=== PATIENT | female | born 1970 | race Caucasian/White ===

== ENCOUNTER 2016-11-16 20:21 | Emergency (ER) | payer OTHER ==
--- NOTE | 2016-11-16 22:59 | DIAGNOSTIC IMAGING REPORT ---
PROCEDURE: XR ANKLE 3 OR 4 VIEWS - RIGHT INDICATION: TRAUMA/INJURY TECHNIQUE: Four views of the right ankle. COMPARISON: None. FINDINGS: Normal mineralization. There is a partially visualized acute appearing cortical avulsion off of the dorsal and lateral aspect of the cuboid. Degenerative spurring is seen along the dorsal talonavicular articulation. Tibiotalar articulation appears intact. No joint effusion. Achilles tendon is normal. IMPRESSION: 1. Probable cuboid fracture. 2. Ankle joint is intact. 3. Findings called to the emergency room.
--- NOTE | 2016-11-16 23:00 | DIAGNOSTIC IMAGING REPORT ---
PROCEDURE: XR SHOULDER 2 OR MORE VW-RIGHT INDICATION: Pulled by dog leash 1 week ago TECHNIQUE: Three views of the right shoulder COMPARISON: None. FINDINGS: Normal mineralization. No fractures. No dislocation or separation. No suspicious soft tissue calcifications. The visible rib arcs and the underlying lung appear normal. IMPRESSION: 1. Intact right shoulder.
--- NOTE | 2016-11-17 00:19 | ED NURSING NOTES ---
Clinical Report - Nurses [facility] [address] [place] [address] 11/16/2016 20:23 Patient: FITO MATTHEWS TRIAGE Triage time 20:Nov 16 2016. Acuity: LEVEL 3. Chief Complaint: INJURY TO RIGHT ANKLE. Alert. TATA COMA SCORE: [place] Coma Scale: 15- eyes open spontaneously (4); best verbal response- oriented x 4 (5); best motor response- obeys commands (6). --20:37 Jose David Bonilla R.N. 20:28 11/16/16. BP: 147/82. HR: 112. RR: 18. O2 saturation: 99% on room air. Temp: 98.2 F. Pain level now: 810. --20:37 Jose David Bonilla R.N. Weight: 72.5 kg stated. Height/Length: 65 inches Per Patient. BMI: 26.6. --20:33 Jose David Bonilla R.N. Medications Levothyroxine Sodium Oral 125 mcg, daily. --20:35 Jose David Bonilla R.N. Medication/allergy information source: the patient. --20:37 Jose David Bonilla R.N. Allergies No Known Drug Allergy. --20:35 Jose David Bonilla R.N. History Arrived by private vehicle. Historian: patient. Accompanied by friend. Primary physician (Simón Silver [place]). ( (R) Ankle and back pain froom tripping over her dog. She also has a previous injury that she'd gotten 10 days ago when her dog on a cable got wrapped around her arm). This occurred today (about 1 1/2 hours ago). Occurred at home. Mechanism of injury: sustained a twisting injury. She has had trouble walking. Treatment CERTIFIED RESPIRATORY THERAPIST: None. PAST MEDICAL HX: Tetanus status: more than 5 years ago. Immunizations: up-to-date. Last normal menstrual period- about 6 years. SOCIAL HX: Light tobacco smoker (cigarette)- less than 1/2 a pack per day. No alcohol use or drug use. No infectious disease exposure. ABUSE ASSESSMENT: No report of abuse. FALL RISK ASSESSMENT: Fall risk assessment completed. No fall risk identified. NUTRITIONAL RISK ASSESSMENT: The nutritional risk assessment revealed no deficiencies. FUNCTIONAL ASSESSMENT: Functional assessment: no impairments noted. LEARNING NEEDS ASSESSMENT: The learning needs assessment revealed no barriers. SKIN INTEGRITY ASSESSMENT: Skin integrity risk assessment completed. No skin integrity risk identified. --20:37 Jose David Bonilla R.N. PROBLEMS: Tendonitis. Difficulty Walking. Thyroid cancer. Hypothyroidism. Immunizations. --20:36 Jose David Bonilla R.N. ADDITIONAL SURGERIES: . Foot surgery. Thyroid Surgery. --20:36 Jose David Bonilla R.N. Interventions ID band on patient. To treatment room. --20:37 Jose David Bonilla R.N. PHYSICAL ASSESSMENT Ambulatory to room. GENERAL / NEURO / PSYCH: Oriented X 4. Appears in pain. EXTREMITIES: Limited ROM present in the right ankle. Capillary refill is less than 2 seconds in the extremities. Extremity pulses are within normal limits. Pain with weight bearing. Right ankle: tenderness and swelling. SKIN: Skin intact. Skin is warm and dry. --20:38 Jose David Bonilla R.N. NURSING PROGRESS NOTES Patient gowned. Reassurance given to the patient. Patient identifiers checked. Call light placed in reach. Side rails up x 1. Bed placed in lowest position. Brakes of bed on. Patient ready for evaluation- chart flagged and ED physician notified. --20:39 Jose David Bonilla R.N. Cold pack applied to the right ankle. --20:41 Jose David Bonilla R.N. 22:21 11/16/2016 Toradol (Ketorolac Tromethamine) IM 60 mg given. Given in the left ventral gluteus. Allergies verified and confirmed 5 rights. --22:32 Jose David Bonilla R.N. 00:55. 3D boot applied to right foot by tech; distal pulses intact, sensation intact and motor function within normal limits. --01:31 Noelle Calzada 23:15 late entry -. ( sql tech in room doing procedure.). --02:08 Jose David Bonilla R.N. 22:45 11/16/16. BP: 116/82. HR: 79. RR: 16. O2 saturation: 97% on room air. Pain level now: 12/22. --02:11 Jose David Bonilla R.N. DISPOSITION / DISCHARGE 00:55 11/17/16. BP: 120/73. HR: 82. RR: 16. O2 saturation: 97% on room air. Temp: 98.2 F (oral). Pain level now: 10/22. Additional comments: R foot pain. --02:13 Jose David Bonilla R.N. Departure time: 0100. --02:13 Jose David Bonilla R.N. 01:00. Condition at departure: improved. No learning barriers present. Discharge instructions provided and reviewed with the patient. Reviewed medication(s) (prescription given to pt). Reviewed foot care instructions (wear Walker Boot as directed). Reviewed referral to family practice for followup. Patient verbalized understanding. Written instructions provided in German. The patient was discharged by the physician. She was discharged home and unaccompanied at time of discharge. She left the Emergency Department ambulatory and via private vehicle. Patient driving. --02:19 Jose David Bonilla R.N. Locked/Released at 11/17/2016 4:10 by Jose David Bonilla R.N.
--- NOTE | 2016-11-17 00:19 | ED CLINICAL REPORT ---
Clinical Report - Physicians/Mid Levels [facility] [address] [place] [address] 11/16/2016 20:23 Patient: FITO MATTHEWS Time Seen: 21:01; initial patient contact. Arrived- By private vehicle. Historian- patient. HISTORY OF PRESENT ILLNESS Chief Complaint: FALL. The injury occurred about 10 days ago. Fell while standing; tripped. Occurred at home. The patient complains of moderate pain. No blow to the head, neck pain or loss of consciousness. REVIEW OF SYSTEMS No numbness, dizziness, weakness, abdominal pain or laceration. No laceration. She has had back pain and joint pain. All systems otherwise negative, except as recorded above. PAST HISTORY Tendonitis. Difficulty Walking. Thyroid cancer. Hypothyroidism. ADDITIONAL SURGERIES: . Foot surgery. Thyroid Surgery. SOCIAL HISTORY Current every day smoker. No alcohol use or drug use. ADDITIONAL NOTES The nursing notes have been reviewed. PHYSICAL EXAM Vital Signs: 11/16/2016 20:28 BP: 147/82. HR: 112. RR: 18. O2 saturation: 99%. Temp: 98.2 F. Pain level now: 01/22. Have been reviewed. Hypertensive. Tachycardic. Respiratory rate normal. Temperature normal. Oxygen saturation normal. Appearance: Alert. Oriented X3. No acute distress. Head: Head non-tender. No swelling of head. Eyes: Pupils equal, round and reactive to light. ENT: Pharynx normal. Neck: Painless ROM. Non-tender. CVS: Pulses: right radial 2+ and left radial 2+. Respiratory: Breath sounds normal. Chest nontender. Extremities: Right arm: moderate tenderness and swelling and large ecchymosis located in the medial aspect of upper arm. Neurovascular intact distally. Right ankle: moderate tenderness and swelling. Limited ROM secondary to pain (diminished plantar flexion, dorsiflexion, inversion and eversion). Neurovascular intact distally. No erythema, ecchymosis or deformity. LABS, X-RAYS, AND EKG Rt Shoulder X-ray: No fracture. Normal alignment. No bony lesion. Soft tissues normal. Joint spaces normal. Views: AP with external rotation and AP with internal rotation. The X-rays were independently viewed by me and interpreted contemporaneously by me. Prior films were not available for comparison. Interpretation time: 00:18. Rt Ankle X-ray: No fracture. Normal alignment. No bony lesion. Soft tissues normal. Joint spaces normal. Views: 3 view ankle series. Technique: good. The X-rays were independently viewed by me and interpreted contemporaneously by me. Prior films were not available for comparison. Note - Special Studies: RUE U/S: No vascular injury. PROGRESS AND PROCEDURES Disposition: Discharged home in good and improved condition. Condition: good. CLINICAL IMPRESSION Sprain of the right ankle. Single contusion to the right shoulder. Single hematoma to the right upper arm. INSTRUCTIONS Apply ice for 20 minutes four times a day until better. Don't apply ice directly to skin. Wear boot orthosis until released. Your Current Medications: CONTINUE TAKING THE FOLLOWING MEDICATIONS: Levothyroxine Sodium Oral : 125 mcg daily. Prescription Medications: Hydrocodone/APAP 5mg / 325mg: take 1 orally every 6 hours as needed for pain. Dispense fifteen (15). No refill. Follow-up: Screening today revealed the patient's blood pressure to be in the hypertensive range. The patient should follow up with a primary care provider for blood pressure management. Follow-up with: [facility], [facility], , [facility] [address] [address] Follow up in about two days. Call for an appointment. Reason for referral: Ankle injury. Follow-up with: Mario Styles MD, General Surgeon, , [address], [place], [address] Follow up in about two days. Call for an appointment. Reason for referral: Arm Hematoma. (Electronically signed by Yehuda Bowen Dr. 11/17/2016 10:07)
--- NOTE | 2016-11-17 00:19 | ED NURSING NOTES ---
Clinical Report - Nurses [facility] [address] [place] [address] 11/16/2016 20:23 Patient: FITO MATTHEWS TRIAGE Triage time 20:Nov 16 2016. Acuity: LEVEL 3. Chief Complaint: INJURY TO RIGHT ANKLE. Alert. TATA COMA SCORE: [place] Coma Scale: 15- eyes open spontaneously (4); best verbal response- oriented x 4 (5); best motor response- obeys commands (6). --20:37 Jose David Bonilla R.N. 20:28 11/16/16. BP: 147/82. HR: 112. RR: 18. O2 saturation: 99% on room air. Temp: 98.2 F. Pain level now: 810. --20:37 Jose David Bonilla R.N. Weight: 72.5 kg stated. Height/Length: 65 inches Per Patient. BMI: 26.6. --20:33 Jose David Bonilla R.N. Medications Levothyroxine Sodium Oral 125 mcg, daily. --20:35 Jose David Bonilla R.N. Medication/allergy information source: the patient. --20:37 Jsoe David Bonilla R.N. Allergies No Known Drug Allergy. --20:35 Jose David Bonilla R.N. History Arrived by private vehicle. Historian: patient. Accompanied by friend. Primary physician (Simón Silver [place]). ( (R) Ankle and back pain froom tripping over her dog. She also has a previous injury that she'd gotten 10 days ago when her dog on a cable got wrapped around her arm). This occurred today (about 1 1/2 hours ago). Occurred at home. Mechanism of injury: sustained a twisting injury. She has had trouble walking. Treatment TACKER OFF: None. PAST MEDICAL HX: Tetanus status: more than 5 years ago. Immunizations: up-to-date. Last normal menstrual period- about 6 years. SOCIAL HX: Light tobacco smoker (cigarette)- less than 1/2 a pack per day. No alcohol use or drug use. No infectious disease exposure. ABUSE ASSESSMENT: No report of abuse. FALL RISK ASSESSMENT: Fall risk assessment completed. No fall risk identified. NUTRITIONAL RISK ASSESSMENT: The nutritional risk assessment revealed no deficiencies. FUNCTIONAL ASSESSMENT: Functional assessment: no impairments noted. LEARNING NEEDS ASSESSMENT: The learning needs assessment revealed no barriers. SKIN INTEGRITY ASSESSMENT: Skin integrity risk assessment completed. No skin integrity risk identified. --20:37 Jose David Bonilla R.N. PROBLEMS: Tendonitis. Difficulty Walking. Thyroid cancer. Hypothyroidism. Immunizations. --20:36 Jose David Bonilla R.N. ADDITIONAL SURGERIES: . Foot surgery. Thyroid Surgery. --20:36 Jose David Bonilla R.N. Interventions ID band on patient. To treatment room. --20:37 Jose David Bonilla R.N. PHYSICAL ASSESSMENT Ambulatory to room. GENERAL / NEURO / PSYCH: Oriented X 4. Appears in pain. EXTREMITIES: Limited ROM present in the right ankle. Capillary refill is less than 2 seconds in the extremities. Extremity pulses are within normal limits. Pain with weight bearing. Right ankle: tenderness and swelling. SKIN: Skin intact. Skin is warm and dry. --20:38 Jose David Bonilla R.N. NURSING PROGRESS NOTES Patient gowned. Reassurance given to the patient. Patient identifiers checked. Call light placed in reach. Side rails up x 1. Bed placed in lowest position. Brakes of bed on. Patient ready for evaluation- chart flagged and ED physician notified. --20:39 Jose David Bonilla R.N. Cold pack applied to the right ankle. --20:41 Jose David Bonilla R.N. 22:21 11/16/2016 Toradol (Ketorolac Tromethamine) IM 60 mg given. Given in the left ventral gluteus. Allergies verified and confirmed 5 rights. --22:32 Jose David Bonilla R.N. 00:55. 3D boot applied to right foot by tech; distal pulses intact, sensation intact and motor function within normal limits. --01:31 Noelle Calzada 23:15 late entry -. ( solar energy technician in room doing procedure.). --02:08 Jose David Bonilla R.N. 22:45 11/16/16. BP: 116/82. HR: 79. RR: 16. O2 saturation: 97% on room air. Pain level now: 12/22. --02:11 Jose David Bonilla R.N. DISPOSITION / DISCHARGE 00:55 11/17/16. BP: 120/73. HR: 82. RR: 16. O2 saturation: 97% on room air. Temp: 98.2 F (oral). Pain level now: 10/22. Additional comments: R foot pain. --02:13 Jose David Bonilla R.N. Departure time: 0100. --02:13 Jose David Bonilla R.N. 01:00. Condition at departure: improved. No learning barriers present. Discharge instructions provided and reviewed with the patient. Reviewed medication(s) (prescription given to pt). Reviewed foot care instructions (wear Walker Boot as directed). Reviewed referral to family practice for followup. Patient verbalized understanding. Written instructions provided in Serbian. The patient was discharged by the physician. She was discharged home and unaccompanied at time of discharge. She left the Emergency Department ambulatory and via private vehicle. Patient driving. --02:19 Jose David Bonilla R.N. Locked/Released at 11/17/2016 4:10 by Jose David Bonilla R.N.
--- NOTE | 2016-11-17 00:19 | ED CLINICAL REPORT ---
Clinical Report - Physicians/Mid Levels [facility] [address] [place] [address] 11/16/2016 20:23 Patient: FITO MATTHEWS Time Seen: 21:01; initial patient contact. Arrived- By private vehicle. Historian- patient. HISTORY OF PRESENT ILLNESS Chief Complaint: FALL. The injury occurred about 10 days ago. Fell while standing; tripped. Occurred at home. The patient complains of moderate pain. No blow to the head, neck pain or loss of consciousness. REVIEW OF SYSTEMS No numbness, dizziness, weakness, abdominal pain or laceration. No laceration. She has had back pain and joint pain. All systems otherwise negative, except as recorded above. PAST HISTORY Tendonitis. Difficulty Walking. Thyroid cancer. Hypothyroidism. ADDITIONAL SURGERIES: . Foot surgery. Thyroid Surgery. SOCIAL HISTORY Current every day smoker. No alcohol use or drug use. ADDITIONAL NOTES The nursing notes have been reviewed. PHYSICAL EXAM Vital Signs: 11/16/2016 20:28 BP: 147/82. HR: 112. RR: 18. O2 saturation: 99%. Temp: 98.2 F. Pain level now: 01/22. Have been reviewed. Hypertensive. Tachycardic. Respiratory rate normal. Temperature normal. Oxygen saturation normal. Appearance: Alert. Oriented X3. No acute distress. Head: Head non-tender. No swelling of head. Eyes: Pupils equal, round and reactive to light. ENT: Pharynx normal. Neck: Painless ROM. Non-tender. CVS: Pulses: right radial 2+ and left radial 2+. Respiratory: Breath sounds normal. Chest nontender. Extremities: Right arm: moderate tenderness and swelling and large ecchymosis located in the medial aspect of upper arm. Neurovascular intact distally. Right ankle: moderate tenderness and swelling. Limited ROM secondary to pain (diminished plantar flexion, dorsiflexion, inversion and eversion). Neurovascular intact distally. No erythema, ecchymosis or deformity. LABS, X-RAYS, AND EKG Rt Shoulder X-ray: No fracture. Normal alignment. No bony lesion. Soft tissues normal. Joint spaces normal. Views: AP with external rotation and AP with internal rotation. The X-rays were independently viewed by me and interpreted contemporaneously by me. Prior films were not available for comparison. Interpretation time: 00:18. Rt Ankle X-ray: No fracture. Normal alignment. No bony lesion. Soft tissues normal. Joint spaces normal. Views: 3 view ankle series. Technique: good. The X-rays were independently viewed by me and interpreted contemporaneously by me. Prior films were not available for comparison. Note - Special Studies: RUE U/S: No vascular injury. PROGRESS AND PROCEDURES Disposition: Discharged home in good and improved condition. Condition: good. CLINICAL IMPRESSION Sprain of the right ankle. Single contusion to the right shoulder. Single hematoma to the right upper arm. INSTRUCTIONS Apply ice for 20 minutes four times a day until better. Don't apply ice directly to skin. Wear boot orthosis until released. Your Current Medications: CONTINUE TAKING THE FOLLOWING MEDICATIONS: Levothyroxine Sodium Oral : 125 mcg daily. Prescription Medications: Hydrocodone/APAP 5mg / 325mg: take 1 orally every 6 hours as needed for pain. Dispense fifteen (15). No refill. Follow-up: Screening today revealed the patient's blood pressure to be in the hypertensive range. The patient should follow up with a primary care provider for blood pressure management. Follow-up with: [facility], [facility], , [facility] [address] [address] Follow up in about two days. Call for an appointment. Reason for referral: Ankle injury. Follow-up with: Mario Styles MD, General Surgeon, , [address], [place], [address] Follow up in about two days. Call for an appointment. Reason for referral: Arm Hematoma. (Electronically signed by Yehuda Bowen Dr. 11/17/2016 10:07)
--- NOTE | 2016-11-17 00:20 | ED ORDER SUMMARY ---
..... Patient: FITO MATTHEWS OrderSheet [facility] VisitID: [id number] [address] [place] [address] 46y, F Registration Date/Time: 11/16/2016 ORDER SHEET Weight: 72.5 kg (stated) Allergies: No Known Drug Allergy GENERAL ORDERS: Ankle 3 or 4V Right Urgent (20:39 11/16/2016 Juan R.N. verbal order read back to Ashlie Cohen) (Ack 20:42 ALawrence ER Tech1) (20:59 Roselyn) Ice (20:41 11/16/2016 Ignacioelli R.N. verbal order read back to Ashlie Cohen) (20:41 JRomanelli R.N.) Shoulder 2V or more Right Urgent (21:12 11/16/2016 Fani Cohen) (Ack 21:15 ALawrence ER Tech1) (21:27 RFay) US Art Low Ext Doppler Right Urgent (21:13 11/16/2016 Fani Cohen) (Ack 21:15 ALawrence ER Tech1) (Cancelled: Physician Order22:02 Fani Cohen) US Art Upp Ext Doppler Right Urgent (22:02 11/16/2016 Fani Cohen) (Ack 22:05 ALawrence ER Tech1) (23:35 RFay) Orthopedic Boot (00:14 11/17/2016 Fani Cohen) (0:59 omanamy R.N.) MEDICATION ORDERS: Toradol IM 60 mg (NOW) (21:12 11/16/2016 Fani Cohen) (22:32 omanamy R.N.) IV FLUIDS: ORDER SHEET NOTES: [Electronically signed by Jose David Bonilla R.N. (04:10 11/17/2016)] [Electronically signed by Yehuda Bowen Dr. (10:07 11/17/2016)] [Electronically locked/signed by Jose David Bonilla R.N. (04:10 11/17/2016)]
--- NOTE | 2016-11-17 00:20 | ED ORDER SUMMARY ---
..... Patient: FITO MATTHEWS OrderSheet [facility] VisitID: [id number] [address] [place] [address] 46y, F Registration Date/Time: 11/16/2016 ORDER SHEET Weight: 72.5 kg (stated) Allergies: No Known Drug Allergy GENERAL ORDERS: Ankle 3 or 4V Right Urgent (20:39 11/16/2016 Juan R.N. verbal order read back to Ashlie Cohen) (Ack 20:42 ALawrence ER Tech1) (20:59 Roselyn) Ice (20:41 11/16/2016 Ignacioelli R.N. verbal order read back to Ashlie Cohen) (20:41 JRomanelli R.N.) Shoulder 2V or more Right Urgent (21:12 11/16/2016 Fani Cohen) (Ack 21:15 ALawrence ER Tech1) (21:27 RFay) US Art Low Ext Doppler Right Urgent (21:13 11/16/2016 Fani Cohen) (Ack 21:15 ALawrence ER Tech1) (Cancelled: Physician Order22:02 Fani Cohen) US Art Upp Ext Doppler Right Urgent (22:02 11/16/2016 Fani Cohen) (Ack 22:05 ALawrence ER Tech1) (23:35 RFay) Orthopedic Boot (00:14 11/17/2016 Fani Cohen) (0:59 omanamy R.N.) MEDICATION ORDERS: Toradol IM 60 mg (NOW) (21:12 11/16/2016 Fani Cohen) (22:32 omanamy R.N.) IV FLUIDS: ORDER SHEET NOTES: [Electronically signed by Jose David Bonilla R.N. (04:10 11/17/2016)] [Electronically signed by Yehuda Bowen Dr. (10:07 11/17/2016)] [Electronically locked/signed by Jose David Bonilla R.N. (04:10 11/17/2016)]
--- NOTE | 2016-11-17 10:07 | ED DISCHARGE INSTRUCTIONS ---
Patient: FITO MATTHEWS General Instructions [facility] VisitID: [id number] [address] [id number] 46y, F Registration Date/Time: 11/16/2016 Sprain of the right ankle. Single contusion to the right shoulder. Single hematoma to the right upper arm. INSTRUCTIONS Apply ice for 20 minutes four times a day until better. Don't apply ice directly to skin. Wear boot orthosis until released. Your Current Medications: CONTINUE TAKING THE FOLLOWING MEDICATIONS: Levothyroxine Sodium Oral : 125 mcg daily. Prescription Medications: Hydrocodone/APAP 5mg / 325mg: take 1 orally every 6 hours as needed for pain. Dispense fifteen (15). No refill. Follow-up: Screening today revealed the patient's blood pressure to be in the hypertensive range. The patient should follow up with a primary care provider for blood pressure management. Follow-up with: [facility], , [address], , [place], [id number] Follow up in about two days. Call for an appointment. Reason for referral: Ankle injury. Follow-up with: Mario Styles MD, General Surgeon, , [facility], [address] [place] [address] [address] [id number] Follow up in about two days. Call for an appointment. Reason for referral: Arm Hematoma. ADDITIONAL INFORMATION Sprain, Ankle,With X-Ray A sprain is an injury to the ligaments or capsule that holds a joint together. There are no broken bones. Most sprains take from four to six weeks to heal. If the ligament is completely torn (severe sprain), it can take several months to recover. Mild to moderate sprains may be treated with an elastic wrap or an in-shoe splint to provide support and prevent re-injury. A mild sprain may not require any additional support. A severe sprain may require surgery to repair. Home care The following guidelines will help you care for your injury at home: Stay off the injured leg as much as possible until you can walk on it without pain. If you have a lot of pain with walking, crutches or a walker may be prescribed. (These can be rented or purchased at many pharmacies and surgical or orthopedic supply stores). Follow your doctor's advice regarding when to begin bearing weight on that leg. Keep your leg elevated to reduce pain and swelling. When sleeping, place a pillow under the injured leg. When sitting, support the injured leg so it is level with your waist. This is very important during the first 48 hours. Apply an ice pack (ice cubes in a plastic bag, wrapped in a towel) over the injured area for 20 minutes every 12 hours the first day. You can place the ice pack directly over the splint/cast. If you were given a boot, open it to apply the ice pack. Continue with ice packs 34 times a day for the next two days, then as needed for the relief of pain and swelling. You may use acetaminophen or ibuprofen to control pain, unless another pain medicine was prescribed. If you have chronic liver or kidney disease or ever had a stomach ulcer or GI bleeding, talk with your doctor before using these medicines. You may return to sports after healing, when you can run without pain. A sprained ankle is at risk for re-injury during the first six weeks. During that time, protect your ankle with an in-shoe splint that prevents tilting of your ankle from side to side. This is very important if you do active work or play sports during that time. Follow-up care Any X-rays you had today dont show any broken bones, breaks, or fractures. Sometimes fractures dont show up on the first X-ray. Bruises and sprains can sometimes hurt as much as a fracture. These injuries can take time to heal completely. If your symptoms dont improve or they get worse, talk with your doctor. You may need a repeat X-ray. When to seek medical care Get prompt medical attention if any of the following occur: The plaster cast or splint gets wet or soft The fiberglass cast or splint gets wet and does not dry for 24 hours Pain or swelling increases, or redness appears Toes become cold, blue, numb or tingly Re-injure your ankle Hematoma A hematoma is caused by an injury with damage to small blood vessels. This causes blood to leak into the tissues. Blood forms a pocket under the skin that swells and looks like a purplish patch. Gradually the blood in the hematoma is absorbed back into the body. The swelling and pain of the hematoma will go away. This takes from one to four weeks, depending on the size of the hematoma. The skin over the hematoma may turn bluish then brown and yellow as the blood is dissolved and absorbed. Home Care: Limit motion of the joints near the hematoma. If the hematoma is large and painful, you should avoid sports and other vigorous physical activity until the swelling and pain goes away. Apply an ice pack (ice cubes in a plastic bag, wrapped in a towel) over the injured area for 20 minutes every 1-2 hours the first day. You should continue with ice packs 3-4 times a day for the next two days. Continue the use of ice packs for relief of pain and swelling as needed. You may use acetaminophen (Tylenol) or ibuprofen (Motrin, Advil) to control pain, unless another pain medicine was prescribed. [ NOTE : If you have chronic liver or kidney disease or ever had a stomach ulcer or GI bleeding, talk with your doctor before using these medicines.] Follow Up with your doctor or as advised by our staff. [ NOTE: A radiologist will review any X-rays that were taken. We will notify you of any new findings that may affect your care.] Get Prompt Medical Attention if any of the following occur: Redness around the hematoma Increase in pain or warmth in the hematoma Increase in size of the hematoma Fever of 100.4F (38C) or higher, or as directed by your healthcare provider If the hematoma is on the arm or leg, watch for: Increased swelling or pain in the extremity Numbness or tingling or blue color of the hand or foot Aircast Sp-Walker Boot Traditional splints and casts for the foot and ankle protect the injury by preventing movement at the joints. However, many injuries heal better and faster if the injured joint can be moved, while protected at the same time. This is the reason for using an Aircast Walker boot. This is a short boot that provides support and protection to the foot and ankle while allowing you to walk. It contains padded air cells that provide compression and help circulation. It is used for both foot and ankle injuries - both sprains and minor fractures. Ankle and foot sprains can take 4-6 weeks to heal. Persons with severe injuries or over age 60 may require more time to heal. During that time, you are prone to re-injury by suddenly twisting your foot or ankle again while the ligaments are still weak. When treating a sprain, the [employer] Walker boot should be worn whenever walking for at least four weeks, or as long as you continue to have ankle pain. Talk to your doctor for specific advice about the treatment of your condition. Air-Stirrup and SP-Walker are trademarks of [employer]. For more information about their products, see www.[employer]. Hydrocodone Bitartrate, Acetaminophen Oral tablet What is this medicine? ACETAMINOPHEN; HYDROCODONE (a set a ALEXANDER king fen; jackie droe KOE done) is a pain reliever. It is used to treat mild to moderate pain. How should I use this medicine? Take this medicine by mouth. Swallow it with a full glass of water. Follow the directions on the prescription label. If the medicine upsets your stomach, take the medicine with food or milk. Do not take more than you are told to take. Talk to your ocean export agent regarding the use of this medicine in children. This medicine is not approved for use in children. What side effects may I notice from receiving this medicine? Side effects that you should report to your doctor or health post acute care nurse as soon as possible: allergic reactions like skin rash, itching or hives, swelling of the face, lips, or tongue breathing problems confusion feeling faint or lightheaded, falls stomach pain yellowing of the eyes or skin Side effects that usually do not require medical attention (report to your doctor or health post acute care nurse if they continue or are bothersome): nausea, vomiting stomach upset What may interact with this medicine? alcohol antihistamines isoniazid medicines for depression, anxiety, or psychotic disturbances medicines for sleep muscle relaxants naltrexone narcotic medicines (opiates) for pain phenobarbital ritonavir tramadol What if I miss a dose? If you miss a dose, take it as soon as you can. If it is almost time for your next dose, take only that dose. Do not take double or extra doses. Where should I keep my medicine? Keep out of the reach of children. This medicine can be abused. Keep your medicine in a safe place to protect it from theft. Do not share this medicine with anyone. Selling or giving away this medicine is dangerous and against the law. Store at room temperature between 15 and 30 degrees C (59 and 86 degrees F). Protect from light. Keep container tightly closed. Throw away any unused medicine after the expiration date. Discard unused medicine and used packaging carefully. Pets and children can be harmed if they find used or lost packages. What should I tell my health care provider before I take this medicine? They need to know if you have any of these conditions: brain tumor Crohn's disease, inflammatory bowel disease, or ulcerative colitis drink more than 3 alcohol-containing drinks per day drug abuse or addiction head injury heart or circulation problems kidney disease or problems going to the bathroom liver disease lung disease, asthma, or breathing problems an unusual or allergic reaction to acetaminophen, hydrocodone, other opioid analgesics, other medicines, foods, dyes, or preservatives or trying to get breast-feeding What should I watch for while using this medicine? Tell your doctor or health post acute care nurse if your pain does not go away, if it gets worse, or if you have new or a different type of pain. You may develop tolerance to the medicine. Tolerance means that you will need a higher dose of the medicine for pain relief. Tolerance is normal and is expected if you take the medicine for a long time. Do not suddenly stop taking your medicine because you may develop a severe reaction. Your body becomes used to the medicine. This does NOT mean you are addicted. Addiction is a behavior related to getting and using a drug for a non-medical reason. If you have pain, you have a medical reason to take pain medicine. Your doctor will tell you how much medicine to take. If your doctor wants you to stop the medicine, the dose will be slowly lowered over time to avoid any side effects. You may get drowsy or dizzy when you first start taking the medicine or change doses. Do not drive, use machinery, or do anything that may be dangerous until you know how the medicine affects you. Stand or sit up slowly. There are different types of narcotic medicines (opiates) for pain. If you take more than one type at the same time, you may have more side effects. Give your health care provider a list of all medicines you use. Your doctor will tell you how much medicine to take. Do not take more medicine than directed. Call emergency for help if you have problems breathing. The medicine will cause constipation. Try to have a bowel movement at least every 2 to 3 days. If you do not have a bowel movement for 3 days, call your doctor or health post acute care nurse. Too much acetaminophen can be very dangerous. Do not take Tylenol (acetaminophen) or medicines that contain acetaminophen with this medicine. Many non-prescription medicines contain acetaminophen. Always read the labels carefully. You have been given the following additional information: Sprain, Ankle, With X-Ray Hematoma Walker Boot Hydrocodone Bitartrate, Acetaminophen Oral tablet (Electronically signed by Yehuda Bowen Dr. 11/17/2016 10:07)
--- NOTE | 2016-11-17 10:07 | ED DISCHARGE INSTRUCTIONS ---
Patient: FITO MATTHEWS General Instructions [facility] VisitID: [id number] [address], [place] [id number] 46y, F Registration Date/Time: 11/16/2016 Sprain of the right ankle. Single contusion to the right shoulder. Single hematoma to the right upper arm. INSTRUCTIONS Apply ice for 20 minutes four times a day until better. Don't apply ice directly to skin. Wear boot orthosis until released. Your Current Medications: CONTINUE TAKING THE FOLLOWING MEDICATIONS: Levothyroxine Sodium Oral : 125 mcg daily. Prescription Medications: Hydrocodone/APAP 5mg / 325mg: take 1 orally every 6 hours as needed for pain. Dispense fifteen (15). No refill. Follow-up: Screening today revealed the patient's blood pressure to be in the hypertensive range. The patient should follow up with a primary care provider for blood pressure management. Follow-up with: [facility], , [address], , [place], [id number] Follow up in about two days. Call for an appointment. Reason for referral: Ankle injury. Follow-up with: Mario Styles MD, General Surgeon, , [facility], [address] [place] [address] [address] [phone] Follow up in about two days. Call for an appointment. Reason for referral: Arm Hematoma. ADDITIONAL INFORMATION Sprain, Ankle,With X-Ray A sprain is an injury to the ligaments or capsule that holds a joint together. There are no broken bones. Most sprains take from four to six weeks to heal. If the ligament is completely torn (severe sprain), it can take several months to recover. Mild to moderate sprains may be treated with an elastic wrap or an in-shoe splint to provide support and prevent re-injury. A mild sprain may not require any additional support. A severe sprain may require surgery to repair. Home care The following guidelines will help you care for your injury at home: Stay off the injured leg as much as possible until you can walk on it without pain. If you have a lot of pain with walking, crutches or a walker may be prescribed. (These can be rented or purchased at many pharmacies and surgical or orthopedic supply stores). Follow your doctor's advice regarding when to begin bearing weight on that leg. Keep your leg elevated to reduce pain and swelling. When sleeping, place a pillow under the injured leg. When sitting, support the injured leg so it is level with your waist. This is very important during the first 48 hours. Apply an ice pack (ice cubes in a plastic bag, wrapped in a towel) over the injured area for 20 minutes every 12 hours the first day. You can place the ice pack directly over the splint/cast. If you were given a boot, open it to apply the ice pack. Continue with ice packs 34 times a day for the next two days, then as needed for the relief of pain and swelling. You may use acetaminophen or ibuprofen to control pain, unless another pain medicine was prescribed. If you have chronic liver or kidney disease or ever had a stomach ulcer or GI bleeding, talk with your doctor before using these medicines. You may return to sports after healing, when you can run without pain. A sprained ankle is at risk for re-injury during the first six weeks. During that time, protect your ankle with an in-shoe splint that prevents tilting of your ankle from side to side. This is very important if you do active work or play sports during that time. Follow-up care Any X-rays you had today dont show any broken bones, breaks, or fractures. Sometimes fractures dont show up on the first X-ray. Bruises and sprains can sometimes hurt as much as a fracture. These injuries can take time to heal completely. If your symptoms dont improve or they get worse, talk with your doctor. You may need a repeat X-ray. When to seek medical care Get prompt medical attention if any of the following occur: The plaster cast or splint gets wet or soft The fiberglass cast or splint gets wet and does not dry for 24 hours Pain or swelling increases, or redness appears Toes become cold, blue, numb or tingly Re-injure your ankle Hematoma A hematoma is caused by an injury with damage to small blood vessels. This causes blood to leak into the tissues. Blood forms a pocket under the skin that swells and looks like a purplish patch. Gradually the blood in the hematoma is absorbed back into the body. The swelling and pain of the hematoma will go away. This takes from one to four weeks, depending on the size of the hematoma. The skin over the hematoma may turn bluish then brown and yellow as the blood is dissolved and absorbed. Home Care: Limit motion of the joints near the hematoma. If the hematoma is large and painful, you should avoid sports and other vigorous physical activity until the swelling and pain goes away. Apply an ice pack (ice cubes in a plastic bag, wrapped in a towel) over the injured area for 20 minutes every 1-2 hours the first day. You should continue with ice packs 3-4 times a day for the next two days. Continue the use of ice packs for relief of pain and swelling as needed. You may use acetaminophen (Tylenol) or ibuprofen (Motrin, Advil) to control pain, unless another pain medicine was prescribed. [ NOTE : If you have chronic liver or kidney disease or ever had a stomach ulcer or GI bleeding, talk with your doctor before using these medicines.] Follow Up with your doctor or as advised by our staff. [ NOTE: A radiologist will review any X-rays that were taken. We will notify you of any new findings that may affect your care.] Get Prompt Medical Attention if any of the following occur: Redness around the hematoma Increase in pain or warmth in the hematoma Increase in size of the hematoma Fever of 100.4F (38C) or higher, or as directed by your healthcare provider If the hematoma is on the arm or leg, watch for: Increased swelling or pain in the extremity Numbness or tingling or blue color of the hand or foot Aircast Sp-Walker Boot Traditional splints and casts for the foot and ankle protect the injury by preventing movement at the joints. However, many injuries heal better and faster if the injured joint can be moved, while protected at the same time. This is the reason for using an Aircast Walker boot. This is a short boot that provides support and protection to the foot and ankle while allowing you to walk. It contains padded air cells that provide compression and help circulation. It is used for both foot and ankle injuries - both sprains and minor fractures. Ankle and foot sprains can take 4-6 weeks to heal. Persons with severe injuries or over age 60 may require more time to heal. During that time, you are prone to re-injury by suddenly twisting your foot or ankle again while the ligaments are still weak. When treating a sprain, the [employer] Walker boot should be worn whenever walking for at least four weeks, or as long as you continue to have ankle pain. Talk to your doctor for specific advice about the treatment of your condition. Air-Stirrup and SP-Walker are trademarks of [employer]. For more information about their products, see www.[employer]. Hydrocodone Bitartrate, Acetaminophen Oral tablet What is this medicine? ACETAMINOPHEN; HYDROCODONE (a set a ALEXANDER king fen; jackie droe KOE done) is a pain reliever. It is used to treat mild to moderate pain. How should I use this medicine? Take this medicine by mouth. Swallow it with a full glass of water. Follow the directions on the prescription label. If the medicine upsets your stomach, take the medicine with food or milk. Do not take more than you are told to take. Talk to your garnett mechanic regarding the use of this medicine in children. This medicine is not approved for use in children. What side effects may I notice from receiving this medicine? Side effects that you should report to your doctor or health resident care aide as soon as possible: allergic reactions like skin rash, itching or hives, swelling of the face, lips, or tongue breathing problems confusion feeling faint or lightheaded, falls stomach pain yellowing of the eyes or skin Side effects that usually do not require medical attention (report to your doctor or health resident care aide if they continue or are bothersome): nausea, vomiting stomach upset What may interact with this medicine? alcohol antihistamines isoniazid medicines for depression, anxiety, or psychotic disturbances medicines for sleep muscle relaxants naltrexone narcotic medicines (opiates) for pain phenobarbital ritonavir tramadol What if I miss a dose? If you miss a dose, take it as soon as you can. If it is almost time for your next dose, take only that dose. Do not take double or extra doses. Where should I keep my medicine? Keep out of the reach of children. This medicine can be abused. Keep your medicine in a safe place to protect it from theft. Do not share this medicine with anyone. Selling or giving away this medicine is dangerous and against the law. Store at room temperature between 15 and 30 degrees C (59 and 86 degrees F). Protect from light. Keep container tightly closed. Throw away any unused medicine after the expiration date. Discard unused medicine and used packaging carefully. Pets and children can be harmed if they find used or lost packages. What should I tell my health care provider before I take this medicine? They need to know if you have any of these conditions: brain tumor Crohn's disease, inflammatory bowel disease, or ulcerative colitis drink more than 3 alcohol-containing drinks per day drug abuse or addiction head injury heart or circulation problems kidney disease or problems going to the bathroom liver disease lung disease, asthma, or breathing problems an unusual or allergic reaction to acetaminophen, hydrocodone, other opioid analgesics, other medicines, foods, dyes, or preservatives or trying to get breast-feeding What should I watch for while using this medicine? Tell your doctor or health resident care aide if your pain does not go away, if it gets worse, or if you have new or a different type of pain. You may develop tolerance to the medicine. Tolerance means that you will need a higher dose of the medicine for pain relief. Tolerance is normal and is expected if you take the medicine for a long time. Do not suddenly stop taking your medicine because you may develop a severe reaction. Your body becomes used to the medicine. This does NOT mean you are addicted. Addiction is a behavior related to getting and using a drug for a non-medical reason. If you have pain, you have a medical reason to take pain medicine. Your doctor will tell you how much medicine to take. If your doctor wants you to stop the medicine, the dose will be slowly lowered over time to avoid any side effects. You may get drowsy or dizzy when you first start taking the medicine or change doses. Do not drive, use machinery, or do anything that may be dangerous until you know how the medicine affects you. Stand or sit up slowly. There are different types of narcotic medicines (opiates) for pain. If you take more than one type at the same time, you may have more side effects. Give your health care provider a list of all medicines you use. Your doctor will tell you how much medicine to take. Do not take more medicine than directed. Call emergency for help if you have problems breathing. The medicine will cause constipation. Try to have a bowel movement at least every 2 to 3 days. If you do not have a bowel movement for 3 days, call your doctor or health resident care aide. Too much acetaminophen can be very dangerous. Do not take Tylenol (acetaminophen) or medicines that contain acetaminophen with this medicine. Many non-prescription medicines contain acetaminophen. Always read the labels carefully. You have been given the following additional information: Sprain, Ankle, With X-Ray Hematoma Walker Boot Hydrocodone Bitartrate, Acetaminophen Oral tablet (Electronically signed by Yehuda Bowen Dr. 11/17/2016 10:07)
--- NOTE | 2016-11-17 10:08 | ED MED RECONCILIATION SUMMARY ---
Patient: FITO MATTHEWS Medication Reconciliation Report [facility] VisitID: [id number] [address] [place] [address] 46y, F Registration Date/Time: 11/16/2016 Weight: 72.5 kg Height/Length: 65 in. BMI: 26.6 ALLERGIES: No Known Drug Allergy The patient's Home Medications are listed below: CONTINUE TAKING THE FOLLOWING MEDICATIONS: Levothyroxine Sodium Oral 125 mcg, daily The source(s) of the original Home Medication information: patient The following Medications were given to the patient in the Emergency Department: Toradol [IM] IM 60 mg, administered: 11/16/2016 10:21:00 PM The following Medications were prescribed to the patient: Hydrocodone/APAP 5mg / 325mg: take 1 orally every 6 hours as needed for pain. Dispense fifteen (15). No refill. -- Yehuda Bowen Dr.
--- NOTE | 2016-11-17 10:08 | ED MED RECONCILIATION SUMMARY ---
Patient: FITO MATTHEWS Medication Reconciliation Report [facility] VisitID: [id number] [address] [place] [address] 46y, F Registration Date/Time: 11/16/2016 Weight: 72.5 kg Height/Length: 65 in. BMI: 26.6 ALLERGIES: No Known Drug Allergy The patient's Home Medications are listed below: CONTINUE TAKING THE FOLLOWING MEDICATIONS: Levothyroxine Sodium Oral 125 mcg, daily The source(s) of the original Home Medication information: patient The following Medications were given to the patient in the Emergency Department: Toradol [IM] IM 60 mg, administered: 11/16/2016 10:21:00 PM The following Medications were prescribed to the patient: Hydrocodone/APAP 5mg / 325mg: take 1 orally every 6 hours as needed for pain. Dispense fifteen (15). No refill. -- Yehuda Bowen Dr.
--- NOTE | 2016-11-17 10:08 | ED MAR SUMMARY ---
..... Medication Administration Record [facility] [address] [place] [address] Patient: FITO MATTHEWS Visit ID: [id number] 46y, F Weight: 72.5 kg Height/Length: 65 in BMI: 26.6 ALLERGIES: No Known Drug Allergy Given 22:21 11/16/2016 Jose David Bonilla R.N. Medication Administered: TORADOL [IM] (KETOROLAC TROMETHAMINE), Dose: 60 mg IM. Medication Ordered: Toradol IM 60 mg (NOW).
--- NOTE | 2016-11-17 10:08 | ED MAR SUMMARY ---
..... Medication Administration Record [facility] [address] [place] [address] Patient: FITO MATTHEWS Visit ID: [id number] 46y, F Weight: 72.5 kg Height/Length: 65 in BMI: 26.6 ALLERGIES: No Known Drug Allergy Given 22:21 11/16/2016 Jose David Bonilla R.N. Medication Administered: TORADOL [IM] (KETOROLAC TROMETHAMINE), Dose: 60 mg IM. Medication Ordered: Toradol IM 60 mg (NOW).
--- NOTE | 2016-11-17 15:02 | DIAGNOSTIC IMAGING REPORT ---
PROCEDURE: US ART UPPER EXT Doppler right INDICATION: Trauma, fell 10 days ago TECHNIQUE: Purdy scale and color Doppler sonographic images of the abdomen were obtained. COMPARISON: None. FINDINGS: In the right upper arm there is an area of subcutaneous edema with avascular cystic structures. This most likely represents an evolving hematoma. This measures of 3.1 x 2.3 x 6 cm. Right common carotid artery 94 cm/sec Right subclavian artery 105 cm/sec Right axillary artery 97 cm/sec Right brachial artery 82 cm/sec Right radial artery 58 cm/sec Right ulnar artery 38 cm/sec IMPRESSION: 1. Normal arterial tree right upper extremity. 2. Subcutaneous hematoma right upper arm measuring 6 x 3.1 x 2.3 cm
== END 2016-11-17 01:00 | disposition home or self-care (01) ==
LOC: ED SRH 20:21
DX: S93.401A Sprain of unspecified ligament of right ankle, initial encounter (principal); S40.011A Contusion of right shoulder, initial encounter; S40.021A Contusion of right upper arm, initial encounter; W01.0XXA Fall on same level from slipping, tripping and stumbling without subsequent striking against object, initial encounter; Y93.89 Activity, other specified; Y99.9 Unspecified external cause status; Y92.009 Unspecified place in unspecified non-institutional (private) residence as the place of occurrence of the external cause; E07.9 Disorder of thyroid, unspecified; F17.200 Nicotine dependence, unspecified, uncomplicated